=== PATIENT | male | born 1970 | race Two or more races ===

== ENCOUNTER 2019-04-07 12:07 | Inpatient (IN) | payer MEDICAID ==
[~2019-04-07] VITALS: Ht 167.6 cm; Wt 83.5 kg
[2019-04-07 12:15] VITALS: BP_SYST 160
[2019-04-07] MEDS ORDERED: ASPIRIN 81 MG TAB.CHEW PO ONE (13:30)
[2019-04-07] MEDS ORDERED: NITROGLYCERIN 1 INCH (GM) OINT. TP ONE (13:30)
[2019-04-07 13:43] LABS: BASOPHILS % (AUTO) 0.5 % (0.0-2.0); EOSINOPHILS # (AUTO) 0.3 K/uL (0.0-0.4); EOSINOPHILS % (AUTO) 7.2 % (0.0-4.0); HEMATOCRIT 42.6 % (36-54); HEMOGLOBIN 14.4 g/dL (14.0-18.0); LYMPHOCYTES # (AUTO) 1.9 K/uL (1.0-5.5); LYMPHOCYTES % (AUTO) 47.5 % (20.5-51.5); MEAN CORPUSCULAR HEMOGLOBIN 30 pg (27-31); MEAN CORPUSCULAR HGB CONC 34 % (32-36); MEAN CORPUSCULAR VOLUME 88 fL (79.0-98.0); MONOCYTES # (AUTO) 0.3 K/uL (0.0-1.0); MONOCYTES % (AUTO) 7.9 % (1.7-9.3); NEUTROPHILS # (AUTO) 1.5 K/uL (1.8-7.7); NEUTROPHILS % (AUTO) 36.9 % (40.0-70.0); PLATELET COUNT (AUTO) 210 K/uL (130-430); RED BLOOD CELL COUNT(AUTO) 4.82 MIL/uL (4.2-6.2); RED CELL DISTRIBUTION WIDTH 13.1 % (9.0-15.0)
[2019-04-07 13:55] LABS: CALCIUM 9.1 mg/dL (8.4-11.0); CREATININE 0.91 mg/dL (0.55-1.30); POTASSIUM 4.4 mmol/L (3.5-5.1)
[2019-04-07 14:00] LABS: ALBUMIN 4.1 g/dL (3.4-4.8); TOTAL BILIRUBIN 0.4 mg/dL (0.0-1.0)
[2019-04-07] MEDS ORDERED: cloNIDine HCL 0.1 MG TABLET PO ONE (14:30)
[2019-04-07 14:59] LABS: BILIRUBIN,URINE NEGATIVE (NEGATIVE); BLOOD, URINE NEGATIVE (NEGATIVE); CLARITY/URINE CLEAR (CLEAR); COLOR,URINE YELLOW (YELLOW); GLUCOSE,URINE NEGATIVE (NEGATIVE); KETONES,URINE NEGATIVE (NEGATIVE); NITRITE, URINE NEGATIVE (NEGATIVE); PROTEIN URINE NEGATIVE (NEGATIVE); UROBILINOGEN,URINE 0.2 (0.2-1.0)
[2019-04-07] MEDS ORDERED: NITROGLYCERIN 0.4 MG TAB.SUBL SL ONE (15:15)
[2019-04-07 15:21] LABS: LEUKOCYTE ESTERASE ,URINE NEGATIVE (NEGATIVE)
[2019-04-07 16:06] VITALS: BP_SYST 120
[2019-04-07] MEDS ORDERED: FLU VACC QS2019-20 36MOS UP/PF 60 MCG/0.5 ML SYRINGE I.M. PRN (16:30)
[2019-04-07 18:18] VITALS: BP_SYST 118
[2019-04-07 18:19] VITALS: BP_SYST 107
[2019-04-07 20:00] VITALS: BP_SYST 106
[2019-04-07] MEDS ORDERED: METOPROLOL TARTRATE 25 MG TABLET PO SCH (21:00)
[2019-04-07] MEDS: IBUPROFEN 800 MG TABLET PO SCH (22:00)
[2019-04-08 00:32] VITALS: BP_SYST 120
[2019-04-08 08:00] VITALS: BP_SYST 123
[2019-04-08 08:14] LABS: CHOLESTEROL 169 mg/dL (<200); HDL CHOLESTEROL 39 mg/dL (>45); LDL CHOLESTEROL 116 mg/dL (<100); TRIGLYCERIDES 85 mg/dL (30-150)
[2019-04-08] MEDS: IBUPROFEN 800 MG TABLET PO SCH ×2 (08:59→17:13)
[2019-04-08] MEDS ORDERED: METOPROLOL SUCCINATE 25 MG TAB.SR.24H (TOPROL XL) PO SCH (09:00)
[2019-04-08] MEDS ORDERED: ASPIRIN 81 MG TAB.CHEW PO SCH (09:00)
[2019-04-08] MEDS ORDERED: METO25TA3 PO (16:36)
[2019-04-08 16:37] VITALS: BP_SYST 96
[2019-04-08] MEDS ORDERED: ENOXAPARIN SODIUM 40 MG/0.4 ML SYRINGE SUBCUT SCH (21:00)
== END 2019-04-08 17:30 | disposition home or self-care (01) | DRG 203 ==
LOC: SED 12:07 → STU 15:08
PROVIDERS: ADMIT Family Medicine; ATTEND Family Medicine
DX: R07.89 Other chest pain (principal); F41.9 Anxiety disorder, unspecified; I10 Essential (primary) hypertension; M79.661 Pain in right lower leg; Z82.3 Family history of stroke; Z79.899 Other long term (current) drug therapy
CPT/HCPCS: 36415; 71045; 80053; 80061; 81003; 82550-TC; 83880; 84484; 85025; 85610-TC; 93005; 93306; 93971; 99285; G0378

== ENCOUNTER 2019-09-28 17:36 | Emergency (ER) | payer MEDICAID ==
[~2019-09-28] VITALS: Ht 172.7 cm; Wt 83.0 kg
[~2019-09-28 17:36] MED LIST: METO25TA3 PO
[2019-09-28 17:43] VITALS: BP_SYST 146
[2019-09-28] MEDS ORDERED: DIPHENHYDRAMINE HCL 25 MG CAPSULE PO ONE (18:15)
[2019-09-28] MEDS ORDERED: FAMOTIDINE 20 MG TABLET PO ONE (18:15)
[2019-09-28] MEDS ORDERED: PREDNISONE 20 MG TABLET PO ONE (18:15)
[2019-09-28 18:49] VITALS: BP_SYST 146
== END 2019-09-28 18:50 | disposition home or self-care (01) ==
LOC: SED 17:36
DX: T78.1XXA Other adverse food reactions, not elsewhere classified, initial encounter (principal); X58.XXXA Exposure to other specified factors, initial encounter
CPT/HCPCS: 99284; J7512; Q0163

== ENCOUNTER 2020-09-25 08:05 | Emergency (ER) | payer MEDICAID ==
[~2020-09-25] VITALS: Ht 170.2 cm; Wt 74.8 kg
[2020-09-25 08:10] VITALS: BP_SYST 155
[2020-09-25] MEDS ORDERED: IBUP-1969 PO (08:49)
[2020-09-25] MEDS ORDERED: CORTEARS LEFT EAR (08:49)
[2020-09-25 08:59] VITALS: BP_SYST 155
== END 2020-09-25 09:00 | disposition home or self-care (01) ==
LOC: SED 08:05
DX: H60.502 Unspecified acute noninfective otitis externa, left ear (principal); Z79.899 Other long term (current) drug therapy
CPT/HCPCS: 99283

== ENCOUNTER 2020-09-29 14:40 | Emergency (ER) | payer MEDICAID ==
[~2020-09-29] VITALS: Ht 170.2 cm; Wt 74.8 kg
[~2020-09-29 14:40] MED LIST changes: +CORTEARS LEFT EAR; +IBUP-1969 PO
[2020-09-29 15:03] VITALS: BP_SYST 152
[2020-09-29 15:38] LABS: BASOPHILS % (AUTO) 0.6 % (0.0-2.0); EOSINOPHILS # (AUTO) 0.5 K/uL (0.0-0.4); EOSINOPHILS % (AUTO) 9.8 % (0.0-4.0); HEMATOCRIT 43.6 % (36-54); HEMOGLOBIN 14.9 g/dL (14.0-18.0); LYMPHOCYTES # (AUTO) 2.5 K/uL (1.0-5.5); LYMPHOCYTES % (AUTO) 47.4 % (20.5-51.5); MEAN CORPUSCULAR HEMOGLOBIN 30 pg (27-31); MEAN CORPUSCULAR HGB CONC 34 % (32-36); MEAN CORPUSCULAR VOLUME 87 fL (79.0-98.0); MONOCYTES # (AUTO) 0.4 K/uL (0.0-1.0); NEUTROPHILS # (AUTO) 1.9 K/uL (1.8-7.7); NEUTROPHILS % (AUTO) 35.2 % (40.0-70.0); PLATELET COUNT (AUTO) 248 K/uL (130-430); RED BLOOD CELL COUNT(AUTO) 5.02 MIL/uL (4.2-6.2); RED CELL DISTRIBUTION WIDTH 13.4 % (9.0-15.0); WHITE BLOOD COUNT (AUTO) 5.3 K/uL (4.8-10.8)
[2020-09-29 15:43] LABS: CALCIUM 9.3 mg/dL (8.4-11.0); CREATININE 1.11 mg/dL (0.55-1.30); POTASSIUM 4.7 mmol/L (3.5-5.1)
[2020-09-29 15:49] LABS: ALBUMIN 4.1 g/dL (3.4-4.8); TOTAL BILIRUBIN 0.4 mg/dL (0.0-1.0)
[2020-09-29 16:06] LABS: C-REACTIVE PROTEIN QUANT 0.6 mg/dL (0-0.5)
[2020-09-29] MEDS ORDERED: IBUP-1971 PO (16:10)
[2020-09-29] MEDS ORDERED: CLIN300C12 PO (16:10)
[2020-09-29 16:24] VITALS: BP_SYST 152
== END 2020-09-29 16:24 | disposition home or self-care (01) ==
LOC: SED 14:40
DX: H66.91 Otitis media, unspecified, right ear (principal); Z79.899 Other long term (current) drug therapy
CPT/HCPCS: 36415; 80053; 83605; 85025; 86140; 99283